=== PATIENT | male | born 1955 | race Caucasian/White ===

== ENCOUNTER 2021-03-02 16:12 | Inpatient (IN) ==
[2021-03-02 16:45] LABS: Eosinophils % 1.1 % (0.00-10.9); Immature Granulocytes % 0.7 %; Immature Granulocytes Absolute 0.02 #; Lymphocytes # 2.3 10*3/uL (1.4-4.0); Lymphocytes % 85.5 % (21.2-54.2); Mean Corpuscular HGB Conc 33.1 GM/DL (32-36); Mean Corpuscular Volume 121.4 FL (87-102); Monocytes % 2.6 % (1.7-12.7); Neutrophils % 10.1 % (38.7-73.9); Red Blood Count 1.12 MC/CUMM (3.8-5.5); Red Cell Distribution Width 16.2 % (9.3-17.3); White Blood Count 2.7 T/CUMM (4-12)
[2021-03-02 16:48] LABS: Hematocrit 13.6 VOL% (42.0-52.0); Hemoglobin 4.5 GM/DL (14.0-18.0); Platelet Count 12 T/CUMM (130-400)
[2021-03-02 17:08] LABS: Albumin 3.8 G/DL (3.4-5.0); Bilirubin,Total 0.8 MG/DL (0.20-1.00); Calcium 8.8 MG/DL (8.5-10.1); Osmolality,Calculated 275.7 MOS/KG (273-304); Potassium 3.9 MMOL/L (3.5-5.1); Total Protein 7.3 G/DL (6.4-8.2)
[2021-03-02] MEDS ORDERED: SODIUM CHLORIDE 0.9% 1,000 ML IV PRN (17:20)
[2021-03-02 17:37] LABS: % Iron Saturation 40.4 % (18-50); Ferritin 305.5 ng/mL (26-388)
[2021-03-02] MEDS ORDERED: GLUCAGON 1 MG VIAL IM PRN (17:45)
[2021-03-02] MEDS ORDERED: ONDANSETRON 4 MG/2 ML VIAL IV PRN (17:45)
[2021-03-02] MEDS ORDERED: ACETAMINOPHEN 325 MG TABLET PO PRN (17:45)
[2021-03-02] MEDS ORDERED: DEXTROSE 50% 25 GM/50 ML VIAL IV PRN (17:45)
[2021-03-02 17:46] LABS: Folate 14.83 NG/ML (5.38-24.0)
[2021-03-02 17:57] LABS: Atypical Lymphocytes Few; Eosinophils 1 % (0-10); Lymphocytes 87 % (20-55); Segmented Neutrophils 12 % (50-85); Total Cells Counted 100
[2021-03-02 17:59] LABS: Helmet Cells Slight; Schistocytes Few
[2021-03-02 18:00] LABS: Anisocytosis 2+; Elliptocytes Few; Ovalocytes Few; Polychromasia Slight
[2021-03-02 18:01] LABS: Spherocytes Slight
[2021-03-02 18:02] LABS: Hypochromasia 1+; Platelet Estimate Decreased
[2021-03-03 06:29] LABS: Eosinophils % 1.1 % (0.00-10.9); Lymphocytes # 2.3 10*3/uL (1.4-4.0); Mean Corpuscular HGB Conc 32.4 GM/DL (32-36); Monocytes % 2.3 % (1.7-12.7); Neutrophils % 9.6 % (38.7-73.9); Red Cell Distribution Width 23.8 % (9.3-17.3); White Blood Count 2.6 T/CUMM (4-12)
[2021-03-03 06:39] LABS: Hematocrit 17.6 VOL% (42.0-52.0); Hemoglobin 5.7 GM/DL (14.0-18.0); Platelet Count 10 T/CUMM (130-400)
[2021-03-03 06:52] LABS: Atypical Lymphocytes Few; Eosinophils 1 % (0-10); Hypochromasia 1+; Lymphocytes 84 % (20-55); Microcytosis 1+; Platelet Estimate Decreased; Segmented Neutrophils 14 % (50-85); Total Cells Counted 100
[2021-03-03 06:56] LABS: Albumin 3.2 G/DL (3.4-5.0); Bilirubin,Total 2.7 MG/DL (0.20-1.00); Calcium 8.3 MG/DL (8.5-10.1); Osmolality,Calculated 277.4 MOS/KG (273-304); Potassium 3.9 MMOL/L (3.5-5.1); Total Protein 6.1 G/DL (6.4-8.2)
[2021-03-03] MEDS: PANTOPRAZOLE 40 MG TABLET PO SCH (08:39)
[2021-03-03] MEDS ORDERED: SODIUM CHLORIDE 0.9% 1,000 ML IV PRN (09:34)
[2021-03-03] MEDS ORDERED: HEPARIN 5,000 UNIT/1 ML VIAL ONE (10:53)
[2021-03-03] MEDS ORDERED: CYANOCOBALAMIN 1000 MCG/1 ML VIAL SUBCUT SCH (14:00)
[2021-03-03] MEDS: CYANOCOBALAMIN 1000 MCG/1 ML VIAL IM SCH (15:37)
[2021-03-03 23:09] LABS: Basophils % 0.3 % (0.0-0.8); Eosinophils # 0.1 10*3/uL (0.0-0.87); Hematocrit 22.6 VOL% (42.0-52.0); Hemoglobin 7.7 GM/DL (14.0-18.0); Immature Granulocytes % 0.3 %; Immature Granulocytes Absolute 0.01 #; Lymphocytes # 2.5 10*3/uL (1.4-4.0); Lymphocytes % 85.1 % (21.2-54.2); Mean Corpuscular HGB Conc 34.1 GM/DL (32-36); Mean Corpuscular Volume 101.8 FL (87-102); Mean Platelet Volume 8.4 FL (9.6-12.0); Monocytes % 2.4 % (1.7-12.7); Neutrophils % 9.9 % (38.7-73.9); Red Blood Count 2.22 MC/CUMM (3.8-5.5); Red Cell Distribution Width 21.8 % (9.3-17.3)
[2021-03-03 23:19] LABS: Platelet Count 10 T/CUMM (130-400)
[2021-03-03 23:27] LABS: Band Neutrophils 1 % (0-10); Eosinophils 2 % (0-10); Lymphocytes 81 % (20-55); Platelet Estimate Decreased; Segmented Neutrophils 12 % (50-85); Total Cells Counted 100
[2021-03-03 23:28] LABS: Anisocytosis 2+; Hypochromasia 3+; Macrocytosis Slight; Microcytosis 1+
[2021-03-03 23:29] LABS: Acanthocytes Few
[2021-03-04 06:15] LABS: Eosinophils % 1.7 % (0.00-10.9); Hematocrit 22.8 VOL% (42.0-52.0); Hemoglobin 7.9 GM/DL (14.0-18.0); Lymphocytes % 83.3 % (21.2-54.2); Mean Corpuscular HGB Conc 34.6 GM/DL (32-36); Mean Corpuscular Volume 102.2 FL (87-102); Mean Platelet Volume 9.3 FL (9.6-12.0); Monocytes % 1.7 % (1.7-12.7); Neutrophils % 13.3 % (38.7-73.9); Red Blood Count 2.23 MC/CUMM (3.8-5.5); Red Cell Distribution Width 21.6 % (9.3-17.3); White Blood Count 2.3 T/CUMM (4-12)
[2021-03-04 06:17] LABS: Albumin 3.2 G/DL (3.4-5.0); Bilirubin,Total 3.2 MG/DL (0.20-1.00); Calcium 8.6 MG/DL (8.5-10.1); Osmolality,Calculated 280.3 MOS/KG (273-304); Total Protein 6.4 G/DL (6.4-8.2)
[2021-03-04 06:18] LABS: Platelet Count 9 T/CUMM (130-400)
[2021-03-04 06:22] LABS: Atypical Lymphocytes Few; Eosinophils 1 % (0-10); Lymphocytes 91 % (20-55); Platelet Estimate Decreased; Segmented Neutrophils 6 % (50-85); Total Cells Counted 100
[2021-03-04 06:23] LABS: Anisocytosis 1+; Hypochromasia 1+; Microcytosis 1+
[2021-03-04 06:24] LABS: Calcium 8.3 MG/DL (8.5-10.1); Osmolality,Calculated 282.1 MOS/KG (273-304); Ovalocytes Slight; Potassium 4.1 MMOL/L (3.5-5.1)
[2021-03-04] MEDS ORDERED: SODIUM CHLORIDE 0.9% 1,000 ML IV PRN (07:47)
[2021-03-04] MEDS: CYANOCOBALAMIN 1000 MCG/1 ML VIAL IM SCH (08:46)
[2021-03-04] MEDS: PANTOPRAZOLE 40 MG TABLET PO SCH (08:47)
[2021-03-04] MEDS: CYANOCOBALAMIN 1000 MCG/1 ML VIAL SUBCUT SCH (09:20)
[2021-03-05 04:34] LABS: Basophils % 0.4 % (0.0-0.8); Eosinophils # 0.1 10*3/uL (0.0-0.87); Eosinophils % 1.9 % (0.00-10.9); Hematocrit 23.2 VOL% (42.0-52.0); Hemoglobin 8.1 GM/DL (14.0-18.0); Lymphocytes # 2.3 10*3/uL (1.4-4.0); Lymphocytes % 87.1 % (21.2-54.2); Mean Corpuscular HGB Conc 34.9 GM/DL (32-36); Mean Corpuscular Volume 102.2 FL (87-102); Mean Platelet Volume 11.1 FL (9.6-12.0); Monocytes % 1.5 % (1.7-12.7); Neutrophils % 9.1 % (38.7-73.9); Platelet Count 40 T/CUMM (130-400); Red Blood Count 2.27 MC/CUMM (3.8-5.5); Red Cell Distribution Width 20.6 % (9.3-17.3); White Blood Count 2.6 T/CUMM (4-12)
[2021-03-05 04:54] LABS: Calcium 8.5 MG/DL (8.5-10.1); Osmolality,Calculated 281.3 MOS/KG (273-304); Potassium 3.9 MMOL/L (3.5-5.1)
[2021-03-05 05:06] LABS: Eosinophils 2 % (0-10); Lymphocytes 79 % (20-55); Nucleated Red Blood Cells 1 (0-5); Platelet Estimate Decreased; Segmented Neutrophils 14 % (50-85); Total Cells Counted 100
[2021-03-05 05:07] LABS: Hypochromasia Slight; Platelet Satellitism 3+
[2021-03-05] MEDS: CYANOCOBALAMIN 1000 MCG/1 ML VIAL SUBCUT SCH (08:49)
[2021-03-05 12:13] VITALS: BP 112/60
== END 2021-03-05 13:30 | disposition home or self-care (01) | DRG 835 ==
LOC: N.ED 16:12 → N.EDINP 17:45 → SUATTDRO 17:45 → N.3E 03-03 01:30 → N.2W 03-04 09:56
PROVIDERS: ADMIT Internal Medicine; ATTEND Internal Medicine